=== PATIENT | female | born 1990 | race African-American/Black ===

== ENCOUNTER 2018-07-28 20:15 | Emergency (ER) | payer MEDICAID, OTHER ==
[~2018-07-28] VITALS: Ht 172.7 cm; Wt 73.0 kg
[2018-07-28 20:18] VITALS: BP 141/70
== END 2018-07-29 00:04 | disposition left against medical advice (07) ==
LOC: ER 20:15
DX: R53.1 Weakness (principal); Z53.21 Procedure and treatment not carried out due to patient leaving prior to being seen by health care provider